=== PATIENT | male | born 1960 | race Caucasian/White ===

== ENCOUNTER 2018-10-17 16:53 | Inpatient (IN) | payer BC ==
[~2018-10-17] VITALS: Ht 190.5 cm; Wt 125.6 kg
[~2018-10-17 16:53] MED LIST: LEVAQUIN 500 M500 M2 PO; PREDNISONE50 MG PO; PROAIR HFA8.5 GM IH; VALACYCLOVIR1000 MG PO
[2018-10-17 16:54] VITALS: BP 125/81
[2018-10-17 17:38] LABS: ABSOLUTE NEUTROPHILS 11.6 thou/uL (1.4-8.2); BASOPHILS 0.5 % (0.0-2.0); EOSINOPHILS 0.9 % (0.0-3.0); HEMATOCRIT 43.6 % (42.0-52.0); HEMOGLOBIN 15.1 gm/dL (14.0-18.0); LYMPHOCYTES 13.3 % (24.0-44.0); MCH 30.6 pg (26.0-34.0); MCHC 34.6 g/dL (28.0-37.0); MCV 88.2 fL (80.0-100.0); MONOCYTES 10.6 % (1.0-8.0); PLATELET COUNT 223 thou/uL (150-400); POLYS 74.7 % (36.0-66.0); RBC 4.94 mil/uL (4.50-6.00); WBC 15.6 thou/uL (4.0-11.0)
[2018-10-17 17:42] LABS: ANION GAP 8 mmol/L (7-16); BUN 12 mg/dL (7-18); CALCIUM 9.1 mg/dL (8.5-10.1); CHLORIDE 98 mmol/L (98-107); CO2 27 mmol/L (21-32); GLUCOSE 99 mg/dL (74-106); POTASSIUM 3.4 mmol/L (3.5-5.1); SODIUM 133 mmol/L (136-145)
[2018-10-17 17:51] LABS: ALBUMIN 3.7 g/dL (3.4-5.0); LIPASE 95 U/L (73-393); SGOT 17 U/L (15-37); SGPT 34 U/L (30-65); TOTAL BILIRUBIN 1.4 mg/dL (<0.1-1.0); TOTAL PROTEIN 7.8 g/dL (6.4-8.2); TROPONIN-I <0.06 ng/mL (<0.06)
[2018-10-17 18:03] LABS: URINE BILIRUBIN NEGATIVE (Negative); URINE BLOOD 2+ (Negative); URINE CLARITY CLEAR; URINE COLOR YELLOW; URINE GLUCOSE-RANDOM* NEGATIVE (Negative); URINE KETONES 1+ (Negative); URINE LEUKOCYTES-REFLEX NEGATIVE (Negative); URINE NITRITE-REFLEX NEGATIVE (Negative); URINE PROTEIN (DIPSTICK) TRACE (Negative)
[2018-10-17 18:11] LABS: MUCUS >6 Heavy strn/LPF (None Seen)
[2018-10-17 18:12] LABS: BACTERIA-REFLEX None Seen /HPF (None Seen); CASTS None Seen /LPF (None Seen); CRYSTALS None Seen /LPF (None Seen); SQUAMOUS None Seen /LPF (0-3); URINE RBC 3-10 Few /HPF (0-2); URINE WBC-REFLEX 0-5 Rare /HPF (0-5)
[2018-10-17 19:32] VITALS: BP 115/67
[2018-10-17 19:45] VITALS: BP 115/67
[2018-10-17 20:17] VITALS: BP 145/74
--- NOTE | 2018-10-17 23:54 | NUR ---
PT ARRIVED ON UNIT FROM ER AT APPROX 1940. ADMITTED WITH CHOLECYSTITIS. PLAN FOR LAP CELIO 10/18. AMBULATING IN ROOM INDEPENDENTLY. MORPHINE PROVIDING PAIN RELIEF. ZOFRAN NAUSEA RELIEF. RESTING COMFORTABLY. NO NEEDS VOICED. CALL LIGHT WITHIN REACH. WILL CONTINUE TO PROVIDE FREQUENT OBSERVATION.
[2018-10-18 04:48] VITALS: BP 117/66
[2018-10-18 05:22] LABS: APTT 27.4 Seconds (24.5-32.8); INR 1.1
[2018-10-18 05:28] LABS: ALBUMIN 2.8 g/dL (3.4-5.0); CALCIUM 8.7 mg/dL (8.5-10.1); CREATININE 0.9 mg/dL (0.7-1.3); POTASSIUM 3.9 mmol/L (3.5-5.1); TOTAL BILIRUBIN 1.1 mg/dL (<0.1-1.0); TOTAL PROTEIN 6.9 g/dL (6.4-8.2)
[2018-10-18 08:12] LABS: HEMATOCRIT 38.9 % (42.0-52.0); HEMOGLOBIN 13.5 gm/dL (14.0-18.0); MCH 30.3 pg (26.0-34.0); MCHC 34.6 g/dL (28.0-37.0); MCV 87.6 fL (80.0-100.0); RBC 4.44 mil/uL (4.50-6.00); RDW 13.7 % (10.5-14.5); WBC 11.8 thou/uL (4.0-11.0)
--- NOTE | 2018-10-18 10:51 | EKG ---
[address] [address] ELECTROCARDIOGRAM REPORT Name: HEIDI ROPER Room #: 417-I ADM IN M.R.#: [id number] ������������������ Admission: 10/17/18 ������������������ Attend Phys: García Guerra MD Discharge: ������������������ Date of : 64 Report #: [id number] ����������������������������������������������������������������� [id number] THIS REPORT FOR: //name// [facility] ED Test Date: 2018-10-17 Test Time: 17:47:30 Pat Name: HEIDI ROPER Department: Room: [facility] Gender: M Golf Professional: FLAKITA : 1960 Requested By: Patrick Perdomo Order Number: [id number] MD: Angelito Park Measurements Intervals [place] Rate: 67 P: 2 CT: 132 QRS: 25 QRSD: 91 T: 25 QT: 378 QTc: 399 Interpretive Statements Sinus rhythm No previous ECG available for comparison Electronically Signed On 10-18-2018 10:51:10 CDT by Angelito Park [email or web address] ��������������������������������������������� <ELECTRONICALLY SIGNED> ���������������������������������������� By: Angelito Park MD ��������������������������������������������� 10/18/18 1051 1747 1747 Angelito Park MD /EPI
[2018-10-18 13:18] VITALS: BP 110/70
[2018-10-18 13:30] VITALS: BP 120/80
[2018-10-18 14:00] VITALS: BP 128/78
[2018-10-18 15:00] VITALS: BP 119/76
--- NOTE | 2018-10-18 16:04 | NUR ---
WENT TO SURGERY AT 0900 AND RETURNED AT 1318. AAOX4 VERY PLEASANT AND COOPERATIVE. NO C/O PAIN. VSS. IV INFUSING WITHOUT DIFFICULTY. TOLERATING PO FLUIDS WITHOUT NAUSEA OR VOMITING. ABD SOFT WITH 3 LAP CELIO SITE CLEAN AND DRY WITH DERMABOND. RESP EVEN AND UNLABORED. SCD'S ON. PROGRESSING TOWARD GOALS.
[2018-10-18 18:29] LABS: ALBUMIN 3.1 g/dL (3.4-5.0); DIRECT BILIRUBIN 0.2 mg/dL (<0.1-0.3); TOTAL BILIRUBIN 0.8 mg/dL (<0.1-1.0); TOTAL PROTEIN 7.2 g/dL (6.4-8.2)
[2018-10-18 19:04] VITALS: BP 129/68
--- NOTE | 2018-10-19 00:41 | NUR ---
Assumed care of pt at 1900. Pt alert and oriented x4. Pain controlled. Ambulates in the halls. Incision sites well approximated. Call light within reach. Will continue to monitor.
[2018-10-19 04:30] VITALS: BP 114/68
[2018-10-19 06:04] LABS: HEMATOCRIT 38.5 % (42.0-52.0); MCH 30.1 pg (26.0-34.0); MCHC 33.7 g/dL (28.0-37.0); MCV 89.4 fL (80.0-100.0); RBC 4.31 mil/uL (4.50-6.00); WBC 15.1 thou/uL (4.0-11.0)
[2018-10-19 06:20] LABS: ALBUMIN 2.7 g/dL (3.4-5.0); CALCIUM 8.5 mg/dL (8.5-10.1); CREATININE 0.8 mg/dL (0.7-1.3); POTASSIUM 3.5 mmol/L (3.5-5.1); TOTAL BILIRUBIN 0.8 mg/dL (<0.1-1.0); TOTAL PROTEIN 6.6 g/dL (6.4-8.2)
[2018-10-19] MEDS ORDERED: NORCO 5-325 TA1 EACH PO (09:41)
[2018-10-19 09:58] VITALS: BP 110/65
[2018-10-19 10:49] VITALS: BP 110/65
--- NOTE | 2018-10-19 18:05 | NUR ---
EOS NOTE. DC ORDERES RECEIVED. DERMABOND LAPSITES TO ABD C/D/I. INSTRUCTIONS, SCRIPTS AND F/U APPOINTMENTS REVIEWED. IV REMOVED FROM L AC.
--- NOTE | 2018-10-21 10:07 | PATH ---
[facility] [address] [place] [address] PATHOLOGY RPT PROCEDURE Name: HEIDI REESE Room #: 417-I [facility] IN .R.#: [id number] ������������������ Admission: 10/17/18 ������������������ Date of : 64 Discharge: 10/19/18 Report #: [id number] Path Case #: [id number] [facility] Accession Number: [id number] . 01 Material submitted: . GALLBLADDER . 01 Clinical history: . Acute cholecystitis . 02 Diagnosis: Gallbladder, cholecystectomy: - Marked acute hemorrhagic and gangrenous cholecystitis. - Cholelithiasis. - Incidental reactive lymph node. - Negative for malignancy. (IUV:veda; 10/20/2018) QMS/10/20/2018 . 02 Electronically signed: . Mayuri Vargas MD, Pathologist NPI- [id number] . 01 Gross description: . The specimen is received in formalin, labeled "Heidi Reese, Gallbladder, is a previously opened gallbladder measuring 10.5 x 4.2 x 3.4 cm with a hemorrhagic and dull serosa. The cystic duct region is irregular and ragged with no discrete cystic duct identified. Within this region there is a monk-pink possible lymph nodes measuring 0.7 x 0.4 x 0.4 cm. The hepatic surface is inked black. The mucosa is green-black and necrotic. The wall is fibrous with an average thickness of 0.8 cm. Within the container there are 2 multifaceted, green-brown calculi ranging from 1.7 cm up to 2.4 cm in greatest dimension and measuring 4.2 x 2.5 x 2.0 cm in aggregate. Forensic Photographer tissue is submitted in A1-A3. (A1 possible cystic duct margin and lymph node). (SWS; 10/19/2018) SHS/SHS . 02 Pathologist provided ICD-10: K80.00, K82.A2 . 02 CPT . 654175 Specimen Comment: A courtesy copy of this report has been sent to Specimen Comment: [phone], . Specimen Comment: Report sent to DR SMYTH / DR FAIRCHILD Specimen Comment: A duplicate report has been [place] [address] PATHOLOGY RPT PROCEDURE Name: HEIDI REESE Room #: 417-I DIS IN M.R.#: [id number] ������������������ Admission: 10/17/18 ������������������ Date of : 64 Discharge: 10/19/18 Report #: [id number] Path Case #: [id number] updates. Performed at: 01 [facility] [address] [facility] [address], [place], [place] [id number] MD Dani Landaverde MD Phone: [phone] Performed at: [address], [place], [place] [id number] MD Mayuri Vargas MD Phone: [phone]
== END 2018-10-19 11:16 | disposition home or self-care (01) | DRG 417 ==
LOC: ER 16:53 → 4E 19:31 → EROBS 19:31 → 4E 19:46
PROVIDERS: Emergency Medicine; Internal Medicine; Nurse Practitioner Acute Care; Surgery; ADMIT Hospitalist
PROC: 0FT44ZZ Resection of Gallbladder, Percutaneous Endoscopic Approach (ICD-10-PCS; principal; 2018-10-17)
DX: K81.0 Acute cholecystitis (principal); E43 Unspecified severe protein-calorie malnutrition; E87.6 Hypokalemia; D72.829 Elevated white blood cell count, unspecified; K76.9 Liver disease, unspecified; Z79.2 Long term (current) use of antibiotics; Z79.899 Other long term (current) drug therapy; Z79.51 Long term (current) use of inhaled steroids; Z80.0 Family history of malignant neoplasm of digestive organs
CPT/HCPCS: 10084; 50010; 50101; 50249; 50411; 50555; 50558; 50900; 50962; 51489; 51975; 52265; 52266; 52287; 53307; 53310; 54022; 54118; 55245; 56462; 56525; 56526; 62110; 62900; 70005